=== PATIENT | male | born 2000 | race Caucasian/White ===

== ENCOUNTER 2022-01-23 10:56 | Emergency (ER) | payer OTHER, SELFPAY ==
[2022-01-23 11:15] VITALS: BP 125/91; PULSE 82; RESP 16; TEMP 36.8; O2SAT 99
--- NOTE | 2022-01-23 11:32 | ED.WOUNDLAC ---
HPI - Wound/Laceration General Chief Complaint: Wound/Laceration Stated Complaint: Cut Pinky Finger on Lt Hand Time Seen by Provider: 01/23/22 11:25 Source: patient Mode of arrival: ambulatory Limitations: no limitations History of Present Illness HPI narrative: Yonathan Ruiz is a 21 yo male with no PMH who cut his finger at work on a can lid. Palmar side distal left little finger Related Data Home Medications Medication Instructions Recorded Confirmed No Home Medications 01/23/22 01/23/22 Allergies Allergy/AdvReac Type Severity Reaction Status Date / Time No Known Allergies Allergy Verified 01/23/22 11:25 Review of Systems Review of Systems: CONSTITUTIONAL: Denies fever, chills, sweats. EYES: Denies visual changes, redness, discharge. ENT: Denies rhinorrhea, congestion, sore throat, otalgia. CARDIOVASCULAR: Denies chest pain, palpitations, edema. RESPIRATORY: Denies dyspnea, wheezing, cough GASTROINTESTINAL: Denies abdominal pain, nausea, vomiting, diarrhea. GENITOURINARY: Denies dysuria, hematuria, abnormal discharge SKIN: Denies rash or itching. NEUROLOGIC: Denies numbness, or focal weakness. PSYCHIATRIC: Denies anxiety or depression. Left small finger palmar side distal digit laceration that is elliptical PMFSH Past Medical History Medical History No acute medical problems Social History Social History Smoking packs per day: 1 Smoking cigarettes per day: 20.0 Smoking status: Current every day smoker Tobacco type: cigarettes Alcohol intake: never Comments At time of signature, I agree with nursing past medical, surgical, social and family history. There is no relevant family history pertinent to the presenting complaint. Exam Narrative: GENERAL: This is a well-nourished, well-developed patient, in mild distress. HEAD: normocephalic, atraumatic. EYES: Sclera clear/white. Vision is grossly intact. EARS: External ears normal, . Hearing grossly intact. NOSE: External nose normal without nasal discharge, nares without redness, no rhinorrhea. THROAT: Mucous membranes moist, NECK: Neck supple, CARDIOVASCULAR: Regular rate and rhythm without murmurs, gallops, or rubs. RESPIRATORY: Clear to auscultation. Breath sounds equal bilaterally. No wheezes, rales, or rhonchi. GASTROINTESTINAL: Not done SKIN: warm, intact with no suspicious lesions or rash, good texture and turgor. Laceration to left distal palmar digit of small finger that is elliptical, bleeding controlled NEURO: awake, alert, and oriented to person, place and time. There were no obvious focal neurologic abnormalities. Steady gait EXTREMITIES: Normal range of motion. BACK: Nontender without deformity Course Course Emergency Course: Patient comes with a laceration to the left little finger on the palmar side from a can lid at work Sutures placed after cleaning and anesthetized Directions given on care to patient Level of Care: Express Care Visit Vital Signs Vital signs: Vital Signs Temperature 98.2 F 01/23/22 11:15 Pulse Rate 82 01/23/22 11:15 Respiratory Rate 16 01/23/22 11:15 Blood Pressure 125/91 H 01/23/22 11:15 Pulse Oximetry 99 01/23/22 11:15 Temperature 98.2 F 01/23/22 11:15 Pulse Rate 82 01/23/22 11:15 Respiratory Rate 16 01/23/22 11:15 Blood Pressure 125/91 H 01/23/22 11:15 Pulse Oximetry 99 01/23/22 11:15 Procedures Laceration Laceration 1: Date: 01/23/22 Time: 12:07 Site: hand Side (If applicable): left Size (cm): 1 Description: flap Depth: simple, single layer Local Anesthetic: lidocaine 1% Amount of anesthesia used (mL): 1 Pre-repair: irrigated extensively ====== Skin Level ====== Skin layer closed with: vicryl Size (cm): 4-0 Number of sutures: 4 Technique: simpl
== END 2022-01-23 12:14 | disposition home or self-care (01) ==
PROVIDERS: Emergency Provider Nurse Practitioner
DX: S61.217A Laceration without foreign body of left little finger without damage to nail, initial encounter (principal); W26.8XXA Contact with other sharp object(s), not elsewhere classified, initial encounter; F17.210 Nicotine dependence, cigarettes, uncomplicated
CPT/HCPCS: 12001; 99212; G0463